=== PATIENT | female | born 1985 | race Caucasian/White ===

== ENCOUNTER 2020-11-09 11:53 | Emergency (ER) | payer BC, SELFPAY ==
--- NOTE | ~2020-11-09 | XR_ITS ---
EXAMINATION: XR chest 1V portable EXAM DATE: 11/09/2020 12:37 INDICATION: Chest pain. TECHNIQUE: Portable AP frontal chest x-ray was obtained. Comparison is made to prior examination from 08/30/2015. FINDINGS: The lungs are clear. There are no pleural effusions. The cardiomediastinal silhouette is within normal limits. There is no pneumothorax suspected. The bones and soft tissues are unremarkab le. IMPRESSION: Unremarkable chest x-ray exam. Reviewed, dictated and finalized at location A.
[2020-11-09 12:00] VITALS: BP 118/74; PULSE 57; RESP 16; TEMP 36.4; O2SAT 100
--- NOTE | 2020-11-09 12:09 | ECG_ITS ---
Measurements Intervals [place] Rate: 61 P: 35 AK: 130 QRS: 69 QRSD: 105 T: 44 QT: 445 QTc: 450 Interpretive Statements SINUS RHYTHM WITH MARKED SINUS ARRHYTHMIA BORDERLINE ECG Electronically Signed On 11-09-2020 12:48:12 CDT by Cornel Lugo D.O.
[2020-11-09 12:21] LABS: Basophils Percent Auto 0.3 % (0.2-1.2); Eosinophils Absolute Auto 0.1 K/mm3 (0-0.3); Eosinophils Percent Auto 0.9 % (0-4.4); Hematocrit 44.6 % (37.0-47.0); Hemoglobin 15.1 g/dL (12.0-15.0); Immature Granulocyte Absolute 0.06 K/mm3 (0.00-0.031); Immature Granulocyte Percent A 0.5 % (0-0.5); Lymphocytes Absolute Auto 1.91 K/mm3 (0.9-3.2); Lymphocytes Percent Auto 16.4 % (18.3-44.2); Mean Corpuscular HGB Conc 33.9 g/dl (32-36); Mean Corpuscular Hemoglobin 31.9 pg (26-34); Mean Corpuscular Volume 94.3 fl (80-100); Mean Platelet Volume 9.7 fl (7.4-10.4); Monocytes Absolute Auto 0.6 K/mm3 (0.1-0.6); Monocytes Percent Auto 5.1 % (2.6-8.5); Neutrophils Absolute Auto 8.9 K/mm3 (1.3-6.7); Neutrophils Percent Auto 76.8 % (45.5-73.1); Platelet Count Result 292 k/mm3 (150-375); Red Blood Count 4.73 M/mm3 (4.2-5.4); Red Cell Distribution Width 13.2 % (11.5-14.5); White Blood Count 11.6 K/mm3 (4.5-10.0)
--- NOTE | 2020-11-09 12:27 | ED.GENADULT ---
HPI - General Adult General Chief complaint: Chest Pain Stated complaint: abd pain, n/v Time Seen by Provider: 11/09/20 12:10 Source: patient Mode of arrival: ambulatory Limitations: no limitations History of Present Illness HPI narrative: This is a 34 year old female who presents for evaluation of nausea, vomiting and diarrhea. Patient states she woke up last night with intermittent substernal chest pain with nausea, vomiting and diarrhea. She states initially her pain was sharp and intermttent. Her pain is currently a constant dull ache. She has continued to have nausea ,vomiting and diarrhea with cold sweats. She denies cough or fever. She has intermittent sob but she thinks that is due to being over heated. Related Data Allergies Allergy/AdvReac Type Severity Reaction Status Date / Time No Known Allergies Allergy Verified 07/02/18 08:08 Review of Systems Review of Systems: All systems reviewed & are unremarkable except as noted in HPI and below Constitutional: Constitutional: Reports chills and Denies fever(s) ENT: Denies sore throat Cardiovascular: Cardiovascular: Reports chest pain Respiratory: Respiratory: Denies cough and Reports dyspnea Gastrointestinal: Gastrointestinal: Reports abdominal pain, Reports diarrhea, Reports nausea and Reports vomiting PMFSH Past Medical History Medical History (Updated 11/09/20 @ 13:59 by Romelia Yeh MD) Patient denies medical problems Surgical History Surgical History (Updated 11/09/20 @ 12:27 by Romelia Yeh MD) No pertinent past surgical history Social History Social History (Updated 11/09/20 @ 12:27 by Romelia Yeh MD) Smoking packs per day: 0.5 Smoking cigarettes per day: 10.0 Smoking status: Current every day smoker Alcohol intake: never Substance use type: marijuana Exam Const: General: no acute distress and alert Orientation/consciousness: patient oriented x3 Eyes: EOM: EOMs intact bilaterally Resp: Effort & Inspection: normal respiratory effort and no retractions Auscultation: clear to auscultation bilaterally Cardio: Rate: regular rate Rhythm: regular rhythm Heart sounds: no murmurs GI: GI Palp: Yes Soft to palpation, No Tenderness to palpation present (GI) and No Guarding due to palpation present (GI) Auscultation: normal bowel sounds Skin: General skin exam: normal color Rashes: no rashes Neuro: General: patient oriented x3, moves all extremities and CN's II-XI intact bilaterally Course Reevaluation(s) Reevaluation #1: Nursing staff reported that patient was still vomiting. She was given dose of reglan and being hydrated. She is now stating she can not sit in ER any more and she still has IVF hanging. I discussed with patient that she still needed further evaluation if she can not tolerate PO. I discussed she may need CT scan to rule out obstruction. Patient states she wants to sign AMA. I reviewed risk of signing out and she states she understands. Date: 11/09/20 Time: 13:55 Vital Signs Vital signs: Vital Signs Temperature 97.5 F L 11/09/20 12:00 Pulse Rate 57 L 11/09/20 12:00 Respiratory Rate 16 11/09/20 12:00 Blood Pressure 118/74 11/09/20 12:00 Pulse Oximetry 100 11/09/20 12:00 Temperature 97.5 F L 11/09/20 12:00 Pulse Rate 57 L 11/09/20 12:00 Respiratory Rate 16 11/09/20 12:00 Blood Pressure 112/54 L 11/09/20 13:56 Pulse Oximetry 100 11/09/20 12:00 Medical Decision Making Vital Signs Vital Signs: Vital Signs Temperature 97.5 F L 11/09/20 12:00 Pulse Rate 57 L 11/09/20 12:00 Respiratory Rate 16 11/09/20 12:00 Blood Pressure 118/74 11/09/20 12:00 Pulse Oximetry 100 11/09/20 12:00 Temperature 97.5 F L 11/09/20 12:00 Pulse Rate 57 L 11/09/20 12:00 Respiratory Rate 16 11/09/20 12:00 Blood Pressure 112/54 L 11/09/20 13:56 Pulse Oximetry 100 11/09/20 12:00 Lab Data Result diagrams: 11/09/20 12:14
[2020-11-09 12:31] LABS: Add Urine Microscopic? YES; Appearance Urine Cloudy (Clear); Bacteria Urine Trace /hpf; Bilirubin Urine Negative (Negative); Blood Urine Negative (Negative); Color Urine Yellow (Yellow); Glucose Urine UA Negative (Negative); Ketones Urine 1+ mg/dL (Negative); Leukocyte Esterase Ur Trace LEU/UL (Negative); Mucus Urine Few /lpf; Nitrate Urine Negative (Negative); Protein Urine 1+ mg/dL (Negative); RBC Urine 0-2 /hpf (0-2); Specific Grav Ur 1.027 (1.001-1.035); Squamous Epithelial Cell Urine Moderate /hpf (Few); Urobilinogen Urine Negative mg/dL (<2.0)
[2020-11-09 12:32] LABS: Alanine Aminotransferase 16 U/L (4-35); Albumin Level 4.8 g/dL (3.5-5.1); Alkaline Phosphatase 101 U/L (38-126); Anion Gap 7 mmol/L (8-16); Aspartate Amino Transferase 25 U/L (14-36); Bilirubin,Total 0.4 mg/dL (0.2-1.3); Blood Urea Nitrogen 11 mg/dL (7-17); Calcium 9.5 mg/dL (8.4-10.2); Carbon Dioxide 25 mmol/L (22-30); Chloride 107 mmol/L (98-107); Estimated CRCL calculation 105 ml/min; Estimated Glomerular Filt Rate > 60; Glucose 140 mg/dL (65-105); Lipase 47 U/L (23-300); Potassium 3.6 mmol/L (3.4-5.0); Sodium 139 mmol/L (137-145)
--- NOTE | 2020-11-09 12:36 | PC.NURSE ---
Called lab, [facility](?), added on Trop Baseline [id number]
[2020-11-09] MEDS: PANTOPRAZOLE SODIUM IV 40 MG VIAL IV PUSH (12:57)
[2020-11-09] MEDS: ONDANSETRON INJ 4 MG/2 ML VIAL IV PUSH (12:57)
[2020-11-09 12:58] LABS: Troponin I < 0.012 ng/mL (0.000-0.034)
[2020-11-09] MEDS: LACTATED RINGERS 1,000 ML 999 ML IV CONT ×2 (12:58→13:36)
[2020-11-09] MEDS: METOCLOPRAMIDE HCL INJ 10 MG/2 ML VIAL IV PUSH (13:36)
[2020-11-09 13:56] VITALS: BP 112/54
--- NOTE | 2020-11-28 08:43 | PC.NURSE ---
LATE ENTRY This note is being entered to document information to the patient's record. The following information was omitted on [11/09/20], by [Javon Bazzi RN]. LR stop time #1 at 1330. LR stop time #2 1430.
== END 2020-11-09 13:57 | disposition left against medical advice (07) ==
PROVIDERS: Emergency Medicine; Emergency Provider General Practice
DX: R11.2 Nausea with vomiting, unspecified (principal); R07.89 Other chest pain; F17.210 Nicotine dependence, cigarettes, uncomplicated; R94.31 Abnormal electrocardiogram [ECG] [EKG]
CPT/HCPCS: 36415; 71045; 80053; 81001; 81025; 83690; 84484; 85025; 93005; 96361; 96374; 96375; 99284; C9113; J0131; J2405; J2765; J7120

== ENCOUNTER 2021-06-03 09:51 | Emergency (ER) | payer BC, SELFPAY ==
[2021-06-03 10:16] VITALS: BP 115/68; PULSE 75; RESP 16; TEMP 36.2; O2SAT 99
[2021-06-03 10:24] VITALS: BP 115/68; PULSE 75; RESP 16; TEMP 36.2; O2SAT 99
--- NOTE | 2021-06-03 10:37 | ED.EAR ---
HPI - Ear Problem General Chief complaint: Ear Stated complaint: left ear pain Time Seen by Provider: 06/03/21 10:44 Source: patient Mode of arrival: ambulatory Limitations: no limitations History of Present Illness HPI Narrative: Megan Luna is a 35 yo female with no PMH who [facility] with left-sided ear pain that started a few days ago- she has had chronic ear problems particularly with multiple infections. Related Data Allergies Allergy/AdvReac Type Severity Reaction Status Date / Time No Known Allergies Allergy Verified 07/02/18 08:08 Review of Systems Review of Systems: CONSTITUTIONAL: Denies fever, chills, sweats. EYES: Denies visual changes, redness, discharge. ENT: Denies rhinorrhea, congestion, sore throat, left otalgia. CARDIOVASCULAR: Denies chest pain, palpitations, edema. RESPIRATORY: Denies dyspnea, wheezing, cough GASTROINTESTINAL: Denies abdominal pain, nausea, vomiting, diarrhea. GENITOURINARY: Denies dysuria, hematuria, abnormal discharge SKIN: Denies rash or itching. NEUROLOGIC: Denies numbness, or focal weakness. PSYCHIATRIC: Denies anxiety or depression. PMFSH Past Medical History Medical History Ear infection Surgical History Surgical History No pertinent past surgical history Family History Family History Other Heart disease Social History Social History Smoking packs per day: 0.5 Smoking cigarettes per day: 10.0 Smoking status: Current every day smoker Alcohol intake: never Substance use type: marijuana Comments At time of signature, I agree with nursing past medical, surgical, social and family history. There is no relevant family history pertinent to the presenting complaint. Exam Narrative: GENERAL: This is a well-nourished, well-developed patient, in mild distress. HEAD: normocephalic, atraumatic. EYES: Sclera clear/white. Vision is grossly intact. EARS: External ears normal, auditory canals erythema and without drainage, TMs with fluid behind TM without perforation. Hearing grossly intact. NOSE: External nose normal without nasal discharge, nares without redness, no rhinorrhea. THROAT: Mucous membranes moist, NECK: Neck supple, non-tender CARDIOVASCULAR: Regular rate and rhythm without murmurs, gallops, or rubs. RESPIRATORY: Clear to auscultation. Breath sounds equal bilaterally. No wheezes, rales, or rhonchi. GASTROINTESTINAL: Abdomen soft, SKIN: warm, intact with no suspicious lesions or rash, good texture and turgor. NEURO: awake, alert, and oriented to person, place and time. There were no obvious focal neurologic abnormalities. Steady gait EXTREMITIES: Normal range of motion. BACK: Nontender without deformity Course Course Emergency Course: Patient comes with left-sided ear pain which is recurrent Started on amoxicillin Follow-up with PCP Vital Signs Vital signs: Vital Signs Temperature 97.2 F L 06/03/21 10:16 Pulse Rate 75 06/03/21 10:16 Respiratory Rate 16 06/03/21 10:16 Blood Pressure 115/68 06/03/21 10:16 Pulse Oximetry 99 06/03/21 10:16 Temperature 97.2 F L 06/03/21 10:24 Pulse Rate 75 06/03/21 10:24 Respiratory Rate 16 06/03/21 10:24 Blood Pressure 115/68 06/03/21 10:24 Pulse Oximetry 99 06/03/21 10:24 Medical Decision Making Differential Diagnosis Differential Diagnosis: Otitis media versus otitis externa versus eustachian tube dysfunction Vital Signs Vital Signs: Vital Signs Temperature 97.2 F L 06/03/21 10:16 Pulse Rate 75 06/03/21 10:16 Respiratory Rate 16 06/03/21 10:16 Blood Pressure 115/68 06/03/21 10:16 Pulse Oximetry 99 06/03/21 10:16 Temperature 97.2 F L 06/03/21 10:24 Pulse Rate 75 06/03/21 10:24 Respiratory Rate 16
== END 2021-06-03 11:10 | disposition home or self-care (01) ==
PROVIDERS: Emergency Provider Nurse Practitioner; PCP Physician Assistant
DX: H66.005 Acute suppurative otitis media without spontaneous rupture of ear drum, recurrent, left ear (principal); F17.210 Nicotine dependence, cigarettes, uncomplicated
CPT/HCPCS: 99213; G0463

== ENCOUNTER 2021-06-18 09:16 | Emergency (ER) | payer BC, SELFPAY ==
[2021-06-18 09:23] VITALS: BP 129/77; PULSE 98; RESP 16; TEMP 36.3; O2SAT 100
[2021-06-18 09:25] VITALS: BP 129/77; PULSE 98; RESP 16; TEMP 36.3; O2SAT 100
--- NOTE | 2021-06-18 09:25 | ED.URI ---
HPI - URI/Sore Throat General Chief Complaint: Upper Respiratory Infection Stated Complaint: cough Time Seen by Provider: 06/18/21 09:25 Source: patient and RN notes reviewed History of Present Illness HPI Narrative: Patient is a 35-year-old female who presents the urgent care with complaints of harsh cough, congestion, postnasal drainage and sore throat. Patient states that it started last . Patient was on amoxicillin up until that point for an ear infection. Patient denies of any fevers but states that she has had chills. Denies of any known contact with Covid. Patient has been taking TheraFlu and Mucinex for her symptoms. Patient has been Covid vaccinated and has a Covid test set up through her work. No other acute complaints. No acute distress. Patient aware of the plan of care. Some parts of this dictation were generated by voice recognition software and may contain typographical and/or grammatical inaccuracies. Related Data Allergies Allergy/AdvReac Type Severity Reaction Status Date / Time No Known Allergies Allergy Verified 06/18/21 09:32 Review of Systems Review of Systems: CONSTITUTIONAL: Denies fever, chills, or sweats. EYES: Denies visual changes, redness, or discharge. ENT: Reports of rhinorrhea, sinus congestion, postnasal drainage and sore throat CARDIOVASCULAR: Denies chest pain, palpitations, or edema. RESPIRATORY: Reports of cough GASTROINTESTINAL: Denies abdominal pain, nausea, vomiting, or diarrhea. GENITOURINARY: Denies dysuria or hematuria. SKIN: Denies rash or itching. MUSCULOSKELETAL: Denies back pain, joint pain, or myalgia. NEUROLOGIC: Denies headache, numbness, or weakness. All other systems reviewed are negative, except as documented in HPI. [facility] Past Medical History Medical History Ear infection Surgical History Surgical History No pertinent past surgical history Family History Family History Other Heart disease Social History Social History Smoking packs per day: 0.5 Smoking cigarettes per day: 10.0 Smoking status: Current every day smoker Alcohol intake: never Substance use type: marijuana Comments At the time of my signature, I reviewed and agree with the nursing past medical, surgical, social, and family history. There is no relevant family history pertinent to the patient complaint. Exam Narrative: GENERAL: This is a well-nourished, well-developed patient, in no apparent distress. HEAD: normocephalic, atraumatic. EYES: PERRL. Sclera clear/white. Vision is grossly intact. EARS: External ears normal, auditory canals clear and without drainage, TMs normal without perforation. Hearing grossly intact. NOSE: External nose normal with no obvious nasal discharge, nares without redness, clear to yellow rhinorrhea. THROAT: Mucous membranes moist. Moderate postnasal drainage NECK: Neck supple CARDIOVASCULAR: Regular rate and rhythm without murmurs, gallops, or rubs. RESPIRATORY: Harsh nonproductive cough throughout exam. Clear to auscultation. Breath sounds equal bilaterally. SKIN: warm, intact with no suspicious lesions or rash, good texture and turgor. NEURO: awake, alert, and oriented to person, place and time. There were no obvious focal neurologic abnormalities. EXTREMITIES: No clubbing, cyanosis, or edema. Course Vital Signs Vital signs: Vital Signs Temperature 97.3 F L 06/18/21 09:23 Pulse Rate 98 06/18/21 09:23 Respiratory Rate 16 06/18/21 09:23 Blood Pressure 129/77 06/18/21 09:23 Pulse Oximetry 100 06/18/21 09:23 Temperature 97.3 F L 06/18/21 09:25 Pulse Rate 98 06/18/21 09:25 Respiratory Rate 16 06/18/21 09:25 Blood Pressure 129/77 06/18/21 09:25 Pulse Oximetry 100 06/18/21 09:25 Reviewed
== END 2021-06-18 09:40 | disposition home or self-care (01) ==
PROVIDERS: Emergency Provider Nurse Practitioner Family
DX: J40 Bronchitis, not specified as acute or chronic (principal); F17.210 Nicotine dependence, cigarettes, uncomplicated
CPT/HCPCS: 99213; G0463

== ENCOUNTER 2021-10-27 10:37 | Emergency (ER) | payer BC, SELFPAY ==
--- NOTE | 2021-10-27 10:41 | ED.SKABFB ---
HPI - Skin/Abscess/Foreign Bdy General Chief complaint: Skin/Abscess/Foreign Body Stated complaint: SPIDER BITE Time Seen by Provider: 10/27/21 10:45 Source: patient, RN notes reviewed and old records reviewed Mode of arrival: ambulatory Limitations: no limitations History of Present Illness HPI narrative: 35-year-old female presents to the [facility] with concerns over having a spider bite to her 2 to 3 days ago. Patient states that the left side of her face there feels pressure and pain in her ear. Small circular area where patient reports that she was bit by a small brown house spider, states that when she was bit she smacked it and killed it so she knows it is a spider. Today woke up with ear pain, muffled hearing, pressure preauricular area. Has had nasal congestion. Denies cough, chest pain, shortness of breath. Denies fevers. MD complaint: insect bite/sting Related Data Allergies Allergy/AdvReac Type Severity Reaction Status Date / Time No Known Allergies Allergy Verified 10/27/21 10:44 Review of Systems Review of Systems: All systems reviewed & are unremarkable except as noted in HPI and below Constitutional: Constitutional: Reports no additional constitutional complaints, Denies chills, Denies fever(s), Denies headache(s) and Denies weakness Eyes: Eyes: Reports no additional eye complaints and Denies change in vision ENT: Reports as per HPI, Denies dysphagia, Denies dizziness, Denies headache(s), Reports nasal congestion, Denies neck pain, Reports sinus pressure, Denies sore throat and Denies throat swelling Comments: left ear pain Cardiovascular: Cardiovascular: Reports no additional cardiovascular complaints, Denies chest pain, Denies syncope and Denies dyspnea Respiratory: Respiratory: Reports no additional respiratory complaints, Denies chest congestion, Denies cough, Denies dyspnea and Denies wheezing Gastrointestinal: Gastrointestinal: Reports no additional gastrointestinal complaints, Denies abdominal pain, Denies dysphagia, Denies nausea and Denies vomiting Musculoskeletal: Musculoskeletal: Reports no additional musculoskeletal complaints and Denies numbness Integumentary/Breasts: Skin/Breast: Reports as per HPI and Reports erythema (left cheek) Neurologic: Reports system reviewed and no additional complaints, except as documented, Denies dizziness, Denies syncope, Denies headache(s), Denies focal weakness, Denies numbness and Denies weakness Psychiatric: Psychiatric: Reports no additional psychiatric complaints Allergic/Immunologic: Allergic/Immunologic: Reports no additional allergic/immunologic complaints and Denies wheezing PMFSH Past Medical History Medical History Ear infection Surgical History Surgical History No pertinent past surgical history Family History Family History Other Heart disease Social History Social History Smoking packs per day: 0.5 Smoking cigarettes per day: 10.0 Smoking status: Current every day smoker Alcohol intake: never Substance use type: marijuana Comments At the time of my signature, I reviewed and agree with the nursing past medical, surgical, social, and family history. There is no relevant family history pertinent to the patient complaint. Exam Const: General: healthy appearing, no acute distress and alert Nutritional Appearance: well nourished Orientation/consciousness: patient oriented x3 Limitations: no limitations HENMT: Head: normal to inspection Ears: external ears normal, EAC's normal, mastoids normal bilaterally, no periauricular adenopathy and TM abnormal bulging on the left, erythematous on the left, with loss of landmarks on the left, with myringotomy tube present on the right and scarred on the right General nose exa
[2021-10-27 10:46] VITALS: BP 131/80; PULSE 78; RESP 16; TEMP 35.7; O2SAT 99
== END 2021-10-27 10:55 | disposition home or self-care (01) ==
PROVIDERS: Emergency Provider Nurse Practitioner
DX: H66.92 Otitis media, unspecified, left ear (principal); T63.301A Toxic effect of unspecified spider venom, accidental (unintentional), initial encounter; F17.210 Nicotine dependence, cigarettes, uncomplicated
CPT/HCPCS: 99213; G0463

== ENCOUNTER 2021-11-17 09:57 | Emergency (ER) | payer BC, SELFPAY ==
--- NOTE | ~2021-11-17 | XR_ITS ---
EXAMINATION: XR chest 2V DATE: 11/17/2021 10:41 INDICATION: Cough TECHNIQUE: PA and lateral views of the chest are obtained. COMPARISON: 10/30/2020 FINDINGS: The lungs are free of acute opacities. There is no pleural effusion or pneumothorax. The ca rdiomediastinal silhouette is normal. The visualized bones and soft tissues are unremarkable. IMPRESSION: 1. No acute cardiopulmonary abnormality. Reviewed, dictated and finalized at location B.
[2021-11-17 10:10] VITALS: BP 123/84; PULSE 76; RESP 16; TEMP 36.1; O2SAT 100
--- NOTE | 2021-11-17 10:31 | ED.DIZZY ---
HPI - Dizziness General Chief Complaint: Dizziness Stated Complaint: Dizzy,Nausea Time Seen by Provider: 11/17/21 10:32 Source: patient Mode of arrival: ambulatory Limitations: no limitations History of Present Illness HPI Narrative: Megan Luna is a 36 yo female with PMH of tobacco abuse who has had a cough congestion and ear drainage for a number of days. She states her cough has continued that her chest is not as painful as it was yesterday; she states she coughs up thick yellow mucus but the patient does smoke half pack cigarettes a day. Patient is taking Flonase, antihistamine, cold meds Related Data Allergies Allergy/AdvReac Type Severity Reaction Status Date / Time No Known Allergies Allergy Verified 10/27/21 10:44 Review of Systems Review of Systems: CONSTITUTIONAL: Denies fever, chills, sweats. Feels poorly EYES: Denies visual changes, redness, discharge. ENT: Denies rhinorrhea, has congestion, has sore throat, ear drainage otalgia. CARDIOVASCULAR: Denies chest pain, palpitations, edema. RESPIRATORY: Denies dyspnea, wheezing, has cough GASTROINTESTINAL: Denies abdominal pain, nausea, vomiting, diarrhea. GENITOURINARY: Denies dysuria, hematuria, abnormal discharge SKIN: Denies rash or itching. NEUROLOGIC: Denies numbness, or focal weakness. PSYCHIATRIC: Denies anxiety or depression. PMFSH Past Medical History Medical History Ear infection Surgical History Surgical History No pertinent past surgical history Family History Family History Other Heart disease Social History Social History Smoking packs per day: 0.5 Smoking cigarettes per day: 10.0 Smoking status: Current every day smoker Alcohol intake: never Substance use type: marijuana Comments At time of signature, I agree with nursing past medical, surgical, social and family history. There is no relevant family history pertinent to the presenting complaint. Exam Narrative: GENERAL: This is a well-nourished, well-developed patient, in mild distress. Has cough that sounds productive HEAD: normocephalic, atraumatic. EYES: Sclera clear/white. Vision is grossly intact. EARS: External ears normal, auditory canals mild erythema and with drainage, TMs normal without perforation. Hearing grossly intact. NOSE: External nose normal without nasal discharge, nares without redness, no rhinorrhea. THROAT: Mucous membranes moist, posterior pharynx erythema no exudate NECK: Neck supple, non-tender CARDIOVASCULAR: Regular rate and rhythm without murmurs, gallops, or rubs. RESPIRATORY: Decreased to auscultation. Breath sounds equal bilaterally. No wheezes, rales, or rhonchi. GASTROINTESTINAL: Abdomen soft, , SKIN: warm, intact with no suspicious lesions or rash, good texture and turgor. NEURO: awake, alert, and oriented to person, place and time. There were no obvious focal neurologic abnormalities. Steady gait EXTREMITIES: Normal range of motion. BACK: Nontender without deformity Course Course Emergency Course: Patient comes with complaints of productive cough with yellow thick mucus, not feeling well some dizziness X-ray- negative cardiopulmonary process Started on prednisone, Tessalon Perles, eardrops Level of Care: Express Care Visit Vital Signs Vital signs: Vital Signs Temperature 97.0 F L 11/17/21 10:10 Pulse Rate 76 11/17/21 10:10 Respiratory Rate 16 11/17/21 10:10 Blood Pressure 123/84 11/17/21 10:10 Pulse Oximetry 100 11/17/21 10:10 Temperature 97.0 F L 11/17/21 10:10 Pulse Rate 76 11/17/21 10:10 Respiratory Rate 16 11/17/21 10:10 Blood Pressure 123/84 11/17/21 10:10 Pulse Oximetry 100 11/17/21 10:10 MDM - Dizziness Differential Diagnosis Differential diagnosis: L
== END 2021-11-17 11:03 | disposition home or self-care (01) ==
PROVIDERS: Emergency Provider Nurse Practitioner
DX: J40 Bronchitis, not specified as acute or chronic (principal); F17.210 Nicotine dependence, cigarettes, uncomplicated
CPT/HCPCS: 71046; 99213; G0463

== ENCOUNTER 2022-01-19 16:33 | Emergency (ER) | payer BC, SELFPAY ==
[2022-01-19 16:41] VITALS: BP 117/66; PULSE 78; RESP 16; TEMP 36.9; O2SAT 100
--- NOTE | 2022-01-19 17:30 | ED.UPPEXIN ---
HPI - Extremity Injury (Upper) General Chief Complaint: Extremity Injury, Upper Stated Complaint: left shoulder pain Time Seen by Provider: 01/19/22 17:30 History of Present Illness HPI narrative: Megan Luna is a 36 yo female with no PMH who comes to express care with R sided shoulder pain from helping move a dresser. Happened a few hours ago has not taken any medication are used ice to shoulder but has pain when tries to move neck to the right are left shoulder in any direction Related Data Allergies Allergy/AdvReac Type Severity Reaction Status Date / Time No Known Allergies Allergy Verified 01/19/22 16:48 Review of Systems Review of Systems: CONSTITUTIONAL: Denies fever, chills, sweats. EYES: Denies visual changes, redness, discharge. ENT: Denies rhinorrhea, congestion, sore throat, otalgia. CARDIOVASCULAR: Denies chest pain, palpitations, edema. RESPIRATORY: Denies dyspnea, wheezing, cough GASTROINTESTINAL: Denies abdominal pain, nausea, vomiting, diarrhea. GENITOURINARY: Denies dysuria, hematuria, abnormal discharge SKIN: Denies rash or itching. NEUROLOGIC: Denies numbness, or focal weakness. PSYCHIATRIC: Denies anxiety or depression. Left shoulder injury from lifting dresser that occurred this afternoon PMFSH Past Medical History Medical History Ear infection Surgical History Surgical History No pertinent past surgical history Family History Family History Other Heart disease Social History Social History Smoking packs per day: 0.5 Smoking cigarettes per day: 10.0 Smoking status: Current every day smoker Alcohol intake: never Substance use type: marijuana Comments At time of signature, I agree with nursing past medical, surgical, social and family history. There is no relevant family history pertinent to the presenting complaint. Exam Narrative: GENERAL: This is a well-nourished, well-developed patient, in mild distress. HEAD: normocephalic, atraumatic. EYES: . Sclera clear/white. Vision is grossly intact. EARS: External ears normal,. Hearing grossly intact. NOSE: External nose normal without nasal discharge, THROAT: Mucous membranes moist, NECK: Neck supple, tender at the base of the neck and around sterno clavicular area when turns head to right CARDIOVASCULAR: Regular rate and rhythm without murmurs, gallops, or rubs. RESPIRATORY: Clear to auscultation. Breath sounds equal bilaterally. No wheezes, rales, or rhonchi. GASTROINTESTINAL: Abdomen soft, non-tender, SKIN: warm, intact with no suspicious lesions or rash, good texture and turgor. NEURO: awake, alert, and oriented to person, place and time. There were no obvious focal neurologic abnormalities. Steady gait EXTREMITIES: Normal range of motion. Pain in left shoulder is able to lift arm to 90 degrees straight out with pain and can move to her back but not up and can move her arm anteriorly but states she gets some numbness in her fingers; pain with trying to lift arm overhead but is able to move arm in that direction BACK: Nontender without deformity Course Course Emergency Course: Patient hurt shoulder and neck while helping move a dresser this afternoon Started on baclofen, steroids Discussed use of ice and heat timing of this use If not improved in the next couple of days should contact PCP for PT referral Level of Care: Express Care Visit Vital Signs Vital signs: Vital Signs Temperature 98.5 F 01/19/22 16:41 Pulse Rate 78 01/19/22 16:41 Respiratory Rate 16 01/19/22 16:41 Blood Pressure 117/66 01/19/22 16:41 Pulse Oximetry 100 01/19/22 16:41 Oxygen Delivery Room Air 01/19/22 16:41 Temperature 98.5 F 01/19/22 16:41 Pulse Rate 78 01/19/22 16:41 Respiratory Rate 16
== END 2022-01-19 17:48 | disposition home or self-care (01) ==
PROVIDERS: Emergency Provider Nurse Practitioner
DX: S43.402A Unspecified sprain of left shoulder joint, initial encounter (principal); X50.0XXA Overexertion from strenuous movement or load, initial encounter; F17.210 Nicotine dependence, cigarettes, uncomplicated
CPT/HCPCS: 99212; G0463

== ENCOUNTER 2022-07-13 09:37 | Emergency (ER) | payer BC, SELFPAY ==
[2022-07-13 09:45] VITALS: BP 124/92; PULSE 97; RESP 16; TEMP 35.6; O2SAT 98
--- NOTE | 2022-07-13 09:58 | ED.URI ---
HPI - URI/Sore Throat General Chief Complaint: Upper Respiratory Infection Stated Complaint: Fever/Bodyaches/Chills Time Seen by Provider: 07/13/22 09:58 Source: patient Mode of arrival: ambulatory Limitations: no limitations History of Present Illness HPI Narrative: 36-year-old female presents with complaint of cough, nasal congestion, sore throat, nausea, diarrhea for 2 days. Reports that her manager telemarketing told her that today she tested positive for COVID. Patient states that she works at [employer] and multiple coworkers are sick. 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 Taking rkda-xrr-[id number] cough and cold medicine to treat her symptoms. Has had fever as high as 101 F. denies chest pain or shortness breath. All systems reviewed and negative except as noted above. Related Data Allergies Allergy/AdvReac Type Severity Reaction Status Date / Time No Known Allergies Allergy Verified 07/13/22 09:40 Review of Systems Review of Systems: CONSTITUTIONAL: Reports fever, chills, or sweats. EYES: Denies visual changes, redness, or discharge. ENT: reports rhinorrhea, congestion, sore throat. Denies otalgia. CARDIOVASCULAR: Denies chest pain, palpitations, or edema. RESPIRATORY: Denies cough or dyspnea. GASTROINTESTINAL: reports diarrhea, nausea. GENITOURINARY: Denies dysuria or hematuria. SKIN: Denies rash or itching. MUSCULOSKELETAL: Denies back pain, joint pain, or myalgia. NEUROLOGIC: Denies headache, numbness, or weakness. PSYCHIATRIC: Denies anxiety or depression. All other systems reviewed are negative, except as documented in HPI. [facility] Past Medical History Medical History Ear infection Surgical History Surgical History No pertinent past surgical history Family History Family History Other Heart disease Social History Social History Smoking packs per day: 0.5 Smoking cigarettes per day: 10.0 Smoking status: Current every day smoker Alcohol intake: never Substance use type: marijuana Comments At time of signature, agree with nursing past medical, surgical, social and family history. There is no relevant family history pertinent to the presenting complaint. Exam Narrative: GENERAL: This is a well-nourished, well-developed patient, in no apparent distress. HEAD: normocephalic, atraumatic. EYES: PERRL. Sclera clear/white. Vision is grossly intact. EARS: External ears normal, auditory canals clear and without drainage, TMs normal without perforation. Hearing grossly intact. NOSE: External nose normal . Reports erythema, clear drainage. THROAT: Mucous membranes moist, Erythema posterior pharynx. NECK: Neck supple, non-tender without lymphadenopathy, masses or thyromegaly. CARDIOVASCULAR: Regular rate and rhythm without murmurs, gallops, or rubs. RESPIRATORY: Clear to auscultation. Breath sounds equal bilaterally. No wheezes, rales, or rhonchi. SKIN: warm, Dry, intact with no suspicious lesions or rash, good texture and turgor. NEURO: awake, alert, and oriented to person, place and time. There were no obvious focal neurologic abnormalities. EXTREMITIES: No joint tenderness, effusion, or edema noted. Course Course Level of Care: Express Care Visit Vital Signs Vital signs: Vital Signs Temperature 35.6 C L 07/13/22 09:45 Pulse Rate 97 07/13/22 09:45 Respiratory Rate 16 07/13/22 09:45 Blood Pressure 124/92 H 07/13/22 09:45 Pulse Oximetry 98 07/13/22 09:45 Oxygen Delivery Room Air 07/13/22 09:45 Temperature 35.6 C L 07/13/22 09:45 Pulse Rate 97 07/13/22 09:45 Respiratory Rate 16 07/13/22 09:45 Blood Pressure 124/92 H 07/13/22 09:45 Pulse Oximetry 98 07/13/22 09:45 Oxygen Delivery Room Air 07/13/22 09:45 Revi
== END 2022-07-13 10:15 | disposition home or self-care (01) ==
PROVIDERS: Emergency Provider Nurse Practitioner Family
DX: B34.9 Viral infection, unspecified (principal); Z20.822 Contact with and (suspected) exposure to COVID-19; F17.210 Nicotine dependence, cigarettes, uncomplicated
CPT/HCPCS: 87426; 87804; 99213; C9803; G0463

== ENCOUNTER 2022-10-31 11:17 | Emergency (ER) | payer OTHER, SELFPAY ==
[2022-10-31 11:36] VITALS: BP 117/78; PULSE 80; RESP 16; TEMP 36.6; O2SAT 99
[2022-10-31 11:37] VITALS: BP 117/78; PULSE 80; RESP 16; TEMP 36.6; O2SAT 99
--- NOTE | 2022-10-31 12:00 | ED.URI ---
HPI - URI/Sore Throat General Chief Complaint: Upper Respiratory Infection Stated Complaint: SORE THROAT Time Seen by Provider: 10/31/22 12:00 Source: patient and RN notes reviewed Mode of arrival: ambulatory Limitations: no limitations History of Present Illness HPI Narrative: 36-year-old female presented for complaint of sinus congestion, sore throat, cough, and bilateral ears popping with drainage. Onset 2 days. Endorses recurrent sinus congestion and ear problems. She has T tubes bilaterally. She has taken bwit-sss-cxnoxwl cold medication without any relief. She currently smokes half pack per day, down from 2 packs per day. Denies shortness of breath, nausea, vomiting, diarrhea, fevers or chills. MD elicited complaint: cough Related Data Allergies Allergy/AdvReac Type Severity Reaction Status Date / Time No Known Allergies Allergy Verified 10/31/22 11:37 Review of Systems Review of Systems: CONSTITUTIONAL: Endorses malaise, denies chills, sweats, fever EYES: Denies visual changes, redness, or discharge ENT: Reports rhinorrhea, congestion, sinus pain, otalgia, sore throat CARDIOVASCULAR: Denies chest pain, palpitations, edema RESPIRATORY: Reports cough, post nasal drainage. Denies dyspnea GASTROINTESTINAL: Denies abdominal pain, nausea, vomiting, diarrhea SKIN: Denies rash or itching MUSCULOSKELETAL: Denies myalgia NEUROLOGIC: Denies headache PMFSH Past Medical History Medical History Ear infection Surgical History Surgical History No pertinent past surgical history Family History Family History Other Heart disease Social History Social History Smoking packs per day: 0.5 Smoking cigarettes per day: 10.0 Smoking status: Current every day smoker Alcohol intake: never Substance use type: marijuana Exam Narrative: GENERAL: Ill-appearing, nontoxic no acute distress. HEAD: Normocephalic EYES: PERRLA, conjunctivae clear ENT: Mucous membranes moist. Right TM pearly olmos with dull light reflex; tubes in place bilaterally; Left TM with purulent effusion. no tragal tenderness. Hoarse voice. Oropharynx without erythema, tonsillar swelling, lesions or exudate, no drooling, no trismus, uvula midline. Poor dentition. No tripod positioning, muffled voice, soft palate or pharyngeal wall bulging NECK: Supple. No lymphadenopathy CHEST: Lungs diminished with scattered wheezing. Moist UTILITY BAGGER cough noted. No respiratory distress, speaks in full sentences. HEART: Regular rate and rhythm. SKIN: Warm, dry, no rash. NEURO: Alert and oriented x3. PSYCH: Normal mood and affect Course Course Emergency Course: Patient is aware of diagnosis, understands and agrees to treatment plan. Anticipatory guidance given. Patient agrees to follow-up as directed and is aware of reasons to seek care at the emergency department. Portions of this record may have been created with voice recognition software Level of Care: Express Care Visit Vital Signs Vital signs: Vital Signs Temperature 98 F 10/31/22 11:36 Pulse Rate 80 10/31/22 11:36 Respiratory Rate 16 10/31/22 11:36 Blood Pressure 117/78 10/31/22 11:36 Pulse Oximetry 99 10/31/22 11:36 Oxygen Delivery Room Air 10/31/22 11:36 Temperature 98 F 10/31/22 11:37 Pulse Rate 80 10/31/22 11:37 Respiratory Rate 16 10/31/22 11:37 Blood Pressure 117/78 10/31/22 11:37 Pulse Oximetry 99 10/31/22 11:37 Oxygen Delivery Room Air 10/31/22 11:37 reviewed MDM - URI/Sore Throat MDM Narrative Medical decision making narrative: Discussed physical exam findings. Advised supportive measures and signs/symptoms to go to the ER. States she has an albuterol inhaler. Pt is appropriate for outpt treatment and f/u. Differential
== END 2022-10-31 12:14 | disposition home or self-care (01) ==
PROVIDERS: Emergency Provider Nurse Practitioner Family
DX: J40 Bronchitis, not specified as acute or chronic (principal); H66.92 Otitis media, unspecified, left ear; Z20.822 Contact with and (suspected) exposure to COVID-19; F17.210 Nicotine dependence, cigarettes, uncomplicated
CPT/HCPCS: 87081; 87426; 87804; 87880; 99213; C9803; G0463

== ENCOUNTER 2023-03-26 06:52 | Emergency (ER) | payer OTHER, SELFPAY ==
[2023-03-26 06:54] VITALS: BP 130/90; PULSE 98; RESP 15; TEMP 36.5; O2SAT 99
--- NOTE | 2023-03-26 09:20 | PC.NURSE ---
Continue to wait on MD assessment. Pt resting
--- NOTE | 2023-03-26 09:24 | ED.SKABFB ---
HPI - Skin/Abscess/Foreign Bdy General Chief complaint: Skin/Abscess/Foreign Body Stated complaint: cyst/pain Time Seen by Provider: 03/26/23 09:13 Source: patient Mode of arrival: ambulatory Limitations: no limitations History of Present Illness HPI narrative: This is a 37 year old female that presents to the ER for an area of redness and swelling to the buttock. Reports she noted yesterday what she thought was a small pimple. Reports today the area is much larger and is red and hot. Reports pain to the area. She is about 20 weeks currently. She denies any related concerns. Has had regular care. Her OB is Pippa Dumont. Denies fevers. Related Data Allergies Allergy/AdvReac Type Severity Reaction Status Date / Time No Known Allergies Allergy Verified 03/26/23 06:58 Review of Systems Review of Systems: CONSTITUTIONAL: Denies fever SKIN: Reports redness and swelling All systems reviewed & are unremarkable except as noted in HPI and below PMFSH Past Medical History Medical History Ear infection Surgical History Surgical History No pertinent past surgical history Family History Family History Other Heart disease Social History Social History Smoking packs per day: 0.5 Smoking cigarettes per day: 10.0 Smoking status: Current every day smoker Alcohol intake: never Substance use type: marijuana Exam Narrative: GENERAL: Well-appearing, well-nourished, and in no acute distress. HEAD: Normocephalic, atraumatic. EYES: EOMI. CHEST: No respiratory distress HEART: Regular rate EXTREMITIES: Normal range of motion. No edema. SKIN: Warm, dry, no rash. 3cm circular area of erythema and edema with central fluctuance in the pilonidal area NEURO: No focal deficits. Alert and oriented x3. PSYCH: Normal mood and affect Course Course Emergency Course: Patient agrees with plan of care Vital Signs Vital signs: Vital Signs Temperature 97.7 F 03/26/23 06:54 Pulse Rate 98 03/26/23 06:54 Respiratory Rate 15 03/26/23 06:54 Blood Pressure 130/90 03/26/23 06:54 Pulse Oximetry 99 03/26/23 06:54 Oxygen Delivery Room Air 03/26/23 06:54 Temperature 97.7 F 03/26/23 06:54 Pulse Rate 98 03/26/23 06:54 Respiratory Rate 15 03/26/23 06:54 Blood Pressure 130/90 03/26/23 06:54 Pulse Oximetry 99 03/26/23 06:54 Oxygen Delivery Room Air 03/26/23 06:54 Procedures Abscess I/D other: Date of Incision: 03/26/23 Time of Incision: 10:49 Local Anesthetic: lidocaine 1% and with epi Amount of anesthesia used (mL): 2 Technique: incised with #11 blade Irrigation: Yes Packing used?: plain I&D Results: Pus and Blood Abcess I&D Additional Comments: Loculations broken up. Patient tolerated procedure well, no complications MDM - Skin/Abscess/Foreign Bdy MDM Narrative Medical decision making narrative: Patient presents to the emergency department for an area of redness and swelling to the buttock that had worsened today. She is afebrile and nontoxic-appearing. She did have a pilonidal abscess that was drained. Patient tolerated procedure well, no complications. Packing was placed. She was educated on further wound care. She does have a follow-up appointment with her doctor in about a week. She will be started on oral antibiotics. She was given warnings to return to the ER Patient currently about 20 weeks . She has no related concerns. She is feeling baby move. Normal heart tones Differential Diagnosis Differential diagnosis: Likely cellulitis and other (Abscess, cyst) Critical Care Time Critical Care Time Critical Care Time: No Discharge P
[2023-03-26] MEDS: ACETAMINOPHEN 500 MG TABLET 1000 MG PO (09:29)
--- NOTE | 2023-03-26 10:48 | PC.NURSE ---
RN assisted with I & D of buttocks abscess. Large amount of brown drainage with foul odor. Packing placed be PA. Pt tolerated well
== END 2023-03-26 11:10 | disposition home or self-care (01) ==
PROVIDERS: Emergency Provider Physician Assistant
DX: O99.712 Diseases of the skin and subcutaneous tissue complicating pregnancy, second trimester (principal); L05.01 Pilonidal cyst with abscess; O99.332 Smoking (tobacco) complicating pregnancy, second trimester; F17.210 Nicotine dependence, cigarettes, uncomplicated; Z3A.20 20 weeks gestation of pregnancy
CPT/HCPCS: 10080; 87070; 87077; 87205; 99283; A9270

== ENCOUNTER 2023-06-02 06:24 | Emergency (ER) | payer OTHER, SELFPAY ==
[2023-06-02 06:25] VITALS: BP 132/70; PULSE 99; RESP 18; TEMP 36.6; O2SAT 100
--- NOTE | 2023-06-02 09:23 | ED.GENADULT ---
HPI - General Adult General Chief complaint: Skin/Abscess/Foreign Body Stated complaint: cyst on tailbone Time Seen by Provider: 06/02/23 08:57 History of Present Illness HPI narrative: Megan Luna is a 37 y/o female who presents with reports of having a hx of pilonidal cyst and has had it drained two other times. She states that the last time she had it drained was about 2 months ago here. She reports that the past two days she started to have increased pain/ swelling to the area again. Denies any fever/chills/ abdominal pain / nausea/vomiting Related Data Allergies Allergy/AdvReac Type Severity Reaction Status Date / Time No Known Allergies Allergy Verified 03/26/23 06:58 Review of Systems Review of Systems: CONSTITUTIONAL: Denies fever, chills, or sweats. EYES: Denies visual changes, redness, or discharge. ENT: Denies rhinorrhea, congestion, sore throat, or otalgia. CARDIOVASCULAR: Denies chest pain, palpitations, or edema. RESPIRATORY: Denies cough or dyspnea. GASTROINTESTINAL: Denies abdominal pain, nausea, vomiting, or diarrhea. GENITOURINARY: Denies dysuria or hematuria. SKIN: Complains of increased pain/ swelling to her lower back top of buttock for the past two days MUSCULOSKELETAL: Denies back pain, joint pain, or myalgia. NEUROLOGIC: Denies headache, numbness, dizziness, or weakness. PSYCHIATRIC: Denies anxiety or depression. PMFSH Past Medical History Medical History Ear infection Surgical History Surgical History No pertinent past surgical history Family History Family History Other Heart disease Social History Social History Smoking packs per day: 0.5 Smoking cigarettes per day: 10.0 Smoking status: Current every day smoker Alcohol intake: never Substance use type: marijuana Exam Narrative: GENERAL: Well-appearing, well-nourished, and in no acute distress. HEAD: Normocephalic, atraumatic. EYES: PERRLA and EOMI. ENT: Nares clear, no rhinorrhea or epistaxis. Mucous membranes moist. Oropharynx without tonsillar hypertrophy exudate or other lesions. NECK: Supple. No adenopathy or masses. No carotid bruits or JVD CHEST: Clear to auscultation. No respiratory distress. No wheezes rales or rhonchi HEART: Regular rate and rhythm. No murmur heard. Normal peripheral pulses. ABDOMEN: Soft, nontender, nondistended, normal active bowel sounds. EXTREMITIES: Normal range of motion. No edema. SKIN: area to top of buttock to the right inner buttock to the top of buttock noted to be swollen/ errythema NEURO: No focal deficits. Alert and oriented x3. PSYCH: Normal mood and affect. Course Vital Signs Vital signs: Vital Signs Temperature 36.6 C 06/02/23 06:25 Pulse Rate 99 06/02/23 06:25 Respiratory Rate 18 06/02/23 06:25 Blood Pressure 132/70 06/02/23 06:25 Pulse Oximetry 100 06/02/23 06:25 Oxygen Delivery Room Air 06/02/23 06:25 Temperature 36.6 C 06/02/23 06:25 Pulse Rate 99 06/02/23 06:25 Respiratory Rate 18 06/02/23 06:25 Blood Pressure 132/70 06/02/23 06:25 Pulse Oximetry 100 06/02/23 06:25 Oxygen Delivery Room Air 06/02/23 06:25 Procedures Abscess I/D back: Date of Incision: 06/02/23 Time of Incision: 10:30 Side (if applicable): left Sedation/analgesia: none Local Anesthetic: lidocaine 1% and with epi Amount of anesthesia used (mL): 4 Technique: incised with #11 blade Irrigation: Yes Packing used?: none I&D Results: Pus and Blood Abcess I&D Additional Comments: Cleansed with ChloraPrep/ anesthetized and then cleansed again and one stab incision of the 11 blade used - Moderate pus removed with some blood - pt tolerated well. Area significan
[2023-06-02] MEDS: ACETAMINOPHEN 500 MG TABLET 1000 MG PO (09:31)
[2023-06-02 09:47] LABS: Basophils Percent Auto 0.2 % (0.2-1.2); Eosinophils Absolute Auto 0.1 K/mm3 (0-0.3); Hematocrit 38.6 % (37.0-47.0); Hemoglobin 12.4 g/dL (12.0-15.0); Immature Granulocyte Absolute 0.09 K/mm3 (0.00-0.031); Immature Granulocyte Percent A 0.6 % (0-0.5); Lymphocytes Percent Auto 11.9 % (18.3-44.2); Mean Corpuscular HGB Conc 32.1 g/dl (32-36); Mean Corpuscular Volume 99.7 fl (80-100); Mean Platelet Volume 9.8 fl (7.4-10.4); Monocytes Absolute Auto 0.8 K/mm3 (0.1-0.6); Monocytes Percent Auto 5.3 % (2.6-8.5); Neutrophils Absolute Auto 11.6 K/mm3 (1.3-6.7); Platelet Count Result 299 k/mm3 (150-375); Red Blood Count 3.87 M/mm3 (4.2-5.4); Red Cell Distribution Width 13.1 % (11.5-14.5); White Blood Count 14.3 K/mm3 (4.5-10.0)
[2023-06-02 09:56] LABS: Anion Gap 10 mmol/L (8-16); Blood Urea Nitrogen 9 mg/dL (7-17); Calcium 9.1 mg/dL (8.4-10.2); Carbon Dioxide 21 mmol/L (22-30); Chloride 106 mmol/L (98-107); Estimated CRCL calculation 182 ml/min; Estimated Glomerular Filt Rate > 60; Glucose 79 mg/dL (65-110); Potassium 3.8 mmol/L (3.4-5.0); Sodium 137 mmol/L (137-145)
[2023-06-02 09:57] LABS: Appearance Urine Cloudy (Clear); Bacteria Urine 1+ /hpf; Bilirubin Urine Negative (Negative); Blood Urine Negative (Negative); Color Urine Yellow (Yellow); Glucose Urine UA Negative (Negative); Ketones Urine Negative (Negative); Leukocyte Esterase Ur 1+ LEU/UL (Negative); Need Manual Microscopic Reviewed; Nitrate Urine Negative (Negative); Non Pathogenic Casts 0-2; Protein Urine Negative (Negative); RBC Urine 0-2 /hpf (0-2); Specific Grav Ur 1.018 (1.001-1.035); Squamous Epithelial Cell Urine Many /hpf (Few); Urobilinogen Urine 0.2 mg/dL (<2.0); WBC Urine 0-5 /hpf; pH Urine 6.5 (5.0-9.0)
[2023-06-02 10:03] LABS: Add Urine Microscopic? YES
[2023-06-02] MEDS: SODIUM CHLORIDE 0.9% IV 1,000 ML 999 ML IV CONT (10:12)
== END 2023-06-02 11:30 | disposition home or self-care (01) ==
PROVIDERS: Emergency Provider Nurse Practitioner Family; PCP Advanced Practice Midwife
DX: L05.01 Pilonidal cyst with abscess (principal); F17.210 Nicotine dependence, cigarettes, uncomplicated
CPT/HCPCS: 10080; 36415; 80048; 81001; 85025; 96365; 99284; A9270; J0696; J7030

== ENCOUNTER 2023-07-29 10:21 | Outpatient (RCR) | payer OTHER, SELFPAY ==
[2023-07-30] MEDS: RHO(D) IMMUNE GLOBULIN 300 MCG/2 ML SYRINGE IM (15:25)
== END 2023-10-27 23:59 | disposition home or self-care (01) ==
LOC: ANHLAB 10:21
PROVIDERS: PCP Advanced Practice Midwife; Visit Provider Obstetrics & Gynecology
DX: Z29.13 Encounter for prophylactic Rho(D) immune globulin (principal); O36.0130 Maternal care for anti-D [Rh] antibodies, third trimester, not applicable or unspecified; Z3A.00 Weeks of gestation of pregnancy not specified
CPT/HCPCS: 36415; 85461; 86850; 86900; 86901; 90384; 96372; J2790

== ENCOUNTER 2023-08-13 05:33 | Inpatient (IN) | payer OTHER, SELFPAY ==
[2023-08-13] VITALS (51 sets, daily range): BP systolic 81–128; BP diastolic 45–77; PULSE 54–130; RESP 14–20; TEMP 36.2–36.9; O2SAT 97–100; BMI 37.0
[2023-08-13 06:22] LABS: Basophils Percent Auto 0.3 % (0.2-1.2); Eosinophils Absolute Auto 0.1 K/mm3 (0-0.3); Eosinophils Percent Auto 1.2 % (0-4.4); Hematocrit 37.8 % (37.0-47.0); Hemoglobin 12.4 g/dL (12.0-15.0); Immature Granulocyte Absolute 0.08 K/mm3 (0.00-0.031); Immature Granulocyte Percent A 0.7 % (0-0.5); Lymphocytes Absolute Auto 2.04 K/mm3 (0.9-3.2); Mean Corpuscular HGB Conc 32.8 g/dl (32-36); Mean Corpuscular Hemoglobin 32.4 pg (26-34); Mean Corpuscular Volume 98.7 fl (80-100); Monocytes Absolute Auto 0.6 K/mm3 (0.1-0.6); Monocytes Percent Auto 5.8 % (2.6-8.5); Neutrophils Absolute Auto 7.8 K/mm3 (1.3-6.7); Platelet Count Result 322 k/mm3 (150-375); Red Blood Count 3.83 M/mm3 (4.2-5.4); Red Cell Distribution Width 13.4 % (11.5-14.5); White Blood Count 10.7 K/mm3 (4.5-10.0)
--- NOTE | 2023-08-13 06:23 | LDADM ---
This patient, Megan Luna, was admitted to Labor/Delivery/Recovery 120 on 08/13/23 at 05:33. Plans for labor, pain management and were discussed with patient. Patient/family oriented to hospital policies and general routines including ID bracelet, bed and alarms, visiting hours, pain management, procedures, bathroom and other care routines, personal items, smoking policy, room service/diet and guest tray routines, infant security routines, and visiting hours. Patient/Family are encouraged to report perceived risks to care and to ask questions if they do not understand what they are told or what they should do. See OBIX for further documentation.
--- NOTE | 2023-08-13 06:45 | PC.NURSE ---
Mild contractions 2-8 mins apart. Pt states no change from the contractions she has been having.
[2023-08-13] MEDS: ACETAMINOPHEN 500 MG TABLET 1000 MG PO (07:08)
--- NOTE | 2023-08-13 08:23 | WPDANESEPPF ---
Anes - Initial Pre Proc Eval Procedure: Operation Date: 08/13/23 07:30 Proposed Procedures p Primary Section - Akanksha Navarrete MD Date/Time: 08/13/23 08:23 Surgeon: Akanksha Navarrete MD Pre Op Diagnosis: C/S Patient Data Age: 37 Gender: F Height: 1.63 m Weight: 98 kg Last Vital Signs Pulse 78 08/13/23 06:30 BP 117/71 08/13/23 06:30 O2 Del Method Room Air 08/13/23 06:19 Allergies Allergy/AdvReac Type Severity Reaction Status Date / Time No Known Allergies Allergy Verified 03/26/23 06:58 Home Medications Medication Instructions Recorded Confirmed Type prenat.vits,cholo,ziz-yepa-kmjah 1 tablet PO DAILY 07/22/23 08/13/23 History Laboratory Tests 08/13/23 06:14 WBC 10.7 H K/mm3 (4.5-10.0) RBC 3.83 L M/mm3 (4.2-5.4) Hgb 12.4 g/dL (12.0-15.0) Hct 37.8 % (37.0-47.0) MCV 98.7 fl (80-100) MCH 32.4 pg (26-34) MCHC 32.8 g/dl (32-36) RDW 13.4 % (11.5-14.5) Plt Count 322 k/mm3 (150-375) MPV 10.0 fl (7.4-10.4) Immature Gran % (Auto) 0.7 H % (0-0.5) Neut % (Auto) 73.0 % (45.5-73.1) Lymph % (Auto) 19.0 % (18.3-44.2) [place] % (Auto) 5.8 % (2.6-8.5) Eos % (Auto) 1.2 % (0-4.4) Baso % (Auto) 0.3 % (0.2-1.2) Lymph # (Auto) 2.04 K/mm3 (0.9-3.2) [place] # (Auto) 0.6 K/mm3 (0.1-0.6) Eos # (Auto) 0.1 K/mm3 (0-0.3) Baso # (Auto) 0.0 K/mm3 (0.0-0.1) Abs Immat Gran (auto) 0.08 H K/mm3 (0.00-0.031) Absolute Neuts (auto) 7.8 H K/mm3 (1.3-6.7) Absolute Nucleated RBC 0.0 K/mm3 (0.0-0.012) Nucleated RBC % 0.0 % (0.0-0.2) RPR Pending Blood Type A Negative Antibody Screen Positive Antibody Identification Pending Antigen Identification Pending SAMMY, IgG Interpret Pending SAMMY, Poly Interpret Negative SAMMY, Complement Interp Pending Patient hx anesthesia problems: none Family hx anesthesia problems: none Results Review: All pre-operative results and documents have been reviewed as part of the pre-operative evaluation. [facility] Past Medical History Medical History Ear infection Surgical History Surgical History No pertinent past surgical history Family History Family History Mother Heart disease Sibling Heart disease Social History Social History Smoking packs per day: 0.5 Smoking cigarettes per day: 10.0 Smoking status: Former smoker Tobacco type: cigarettes Alcohol intake: never Substance use: never Substance use type: marijuana Do You Feel Safe in your Home?: Yes Lack of Transportation: No Lack of Food: Never True Current Housing: I Have Housing Concerned About Future Housing: No Difficulty Paying Gas/Electric Bills: No Difficulty Paying for Meds: No Currently Unemployed: No Education: High School Diploma/GED Difficulty w/ Childcare or Family Care: No Spiritual care concerns: No Anes - Eval Final PreProcedure Day of Procedure 08/13/23 08:23 Patient weight: obese Heart: regular rate and rhythm Lungs: clear to auscultation Airway: Mallampati scale class II Neurological: alert and oriented Last oral intake: >/= 8 hours ASA classification: II Emergent: no Anesthetic plan: proceed Anesthesia type and monitoring: regional spinal and standard monitoring Results Review: All pre-operative results and documents have been reviewed as part of the pre-operative evaluation. Informed Consent: The patient's anesthetic plan and its attendant risks and benefits were discussed with the patient/family/POA. Questions were solicited and answers provided to the satisfaction of the patient/family/POA.
--- NOTE | 2023-08-13 08:25 | PC.NURSE ---
Bedside U/S by Dr. Navarrete confirms breech presentation.
[2023-08-13] MEDS: FAMOTIDINE 20 MG/2 ML VIAL IV PUSH (08:26)
[2023-08-13] MEDS: ONDANSETRON INJ 4 MG/2 ML VIAL IV PUSH (08:26)
--- NOTE | 2023-08-13 08:28 | PM.IMHP ---
H&P: HPI History of Present Illness Date/Time: 08/13/23 08:28 Chief Complaint: Term , breech Narrative: this patient is a 37-year-old multiparous female at term with a in the breech position. We have agreed to perform repeat . She understands the procedure in great detail. She understands the risks. She understands injuries may occur that result in hospitalization, more surgery, and severe illness. She understands risk of hemorrhage and infection. She denies any nausea, vomiting, fever, chills. She denies any chest pain or shortness of breath. Review of Systems Review of Systems: All systems reviewed & are unremarkable except as noted in HPI and below Constitutional: Constitutional: Denies chills, Denies fatigue, Denies fever(s) and Denies weakness Eyes: Eyes: Denies blurry vision, Denies change in vision, Denies loss of peripheral vision, Denies loss of vision, Denies other visual disturbances and Denies eye pain ENT: Denies vertigo, Denies dizziness, Denies hearing loss, Denies mouth pain, Denies nasal obstruction, Denies neck mass and Denies neck pain Cardiovascular: Cardiovascular: Denies chest pain, Denies diaphoresis, Denies syncope, Denies leg edema and Denies dyspnea Respiratory: Respiratory: Denies chest congestion, Denies cough, Denies hemoptysis, Denies dyspnea and Denies wheezing Gastrointestinal: Gastrointestinal: Denies abdominal pain, Denies constipation, Denies diarrhea, Denies nausea and Denies vomiting Genitourinary: Genitourinary: Denies hematuria, Denies change in libido, Denies nocturia, Denies genital lesions, Denies flank pain and Denies urinary urgency Musculoskeletal: Musculoskeletal: Denies abnormal gait, Denies back pain, Denies myalgias, Denies arthralgias, Denies joint swelling, Denies muscle weakness and Denies neck pain Integumentary/Breasts: Skin/Breast: Denies swelling, Denies breast pain, Denies breast mass, Denies dry skin, Denies nipple discharge, Denies unusual bruising and Denies jaundice Neurologic: Denies Neuro-related abnormal movements, Denies Abnormal speech present, Denies abnormal gait, Denies behavioral changes, Denies confusion, Denies vertigo, Denies dizziness, Denies syncope, Denies loss of vision, Denies memory loss, Denies convulsions and Denies weakness Psychiatric: Psychiatric: Denies abnormal sleep pattern, Denies behavioral changes, Denies change in libido, Denies confusion, Denies depression, Denies anhedonia and Denies memory loss Endocrine: Endocrine: Reports no additional endocrine complaints, Denies change in libido and Denies fatigue Hematologic/Lymphatic: Hematologic/Lymphatic: Reports no additional hematologic/lymphatic complaints Allergic/Immunologic: Allergic/Immunologic: Reports no additional allergic/immunologic complaints and Denies wheezing PMFSH Past Medical History Medical History Ear infection Surgical History Surgical History No pertinent past surgical history Family History Family History Mother Heart disease Sibling Heart disease Social History Social History Smoking packs per day: 0.5 Smoking cigarettes per day: 10.0 Smoking status: Former smoker Tobacco type: cigarettes Alcohol intake: never Substance use: never Substance use type: marijuana Do You Feel Safe in your Home?: Yes Lack of Transportation: No Lack of Food: Never True Current Housing: I Have Housing Concerned About Future Housing: No Difficulty Paying Gas/Electric Bills: No Difficulty Paying for Meds: No Currently Unemployed: No Education: High School Diploma/GED Difficulty w/ Childcare or Family Care: No Spiritual care concerns: No Meds Home Medications and Allergies Home Medication
[2023-08-13] MEDS: LACTATED RINGERS 1,000 ML 125 ML IV CONT (08:29)
--- NOTE | 2023-08-13 08:31 | WPDHPUPDATE1 ---
History and Physical Update Update Date/Time: 08/13/23 08:31 History and Physical has been reviewed, including an updated exam of the patient. There are NO changes in the patient's condition. Risks, benefits, and alternatives have been discussed and questions answered. Patient agrees to proceed with procedure.
[2023-08-13] MEDS: ceFAZolin 2 GM/D5W 50 ML 2 GM/50 ML BAG IVPB (09:00)
--- NOTE | 2023-08-13 09:02 | SUR.OPER ---
FHT's 120 in OR after spinal placed.
[2023-08-13] MEDS: KETOROLAC 30 MG/ML VIAL (*BKC) 15 MG IV PUSH (09:29)
--- NOTE | 2023-08-13 09:45 | P.PCNOB_ITS ---
OB - Delivery Note Procedure Delivery date: 08/13/23 Pre-op diagnosis: Breech Presentation Post-op Diagnosis: Same Procedure Performed: Primary Surgeon: Akanksha Navarrete MD Anesthesia type: Epidural Description of Procedure/Findings: The patient was taken the operating room.? She was prepped and draped in dorsal supine position with a leftward tilt.? This was done after spinal anesthetic was applied.? A low-transverse skin incision was made and carried down till of the fascia with the knife.? The fascial incision was made with the knife.? The fascial incision was extended laterally with Cruz scissors.? The fascia was tented upward superiorly and inferiorly the rectus muscles were dissected off bluntly.? The rectus muscles were the midline.? The preperitoneal fat and peritoneum were dissected open bluntly at the superior aspect of the rectus muscles.? The peritoneal incision was extended superior and inferior with good position of bladder.? The uterine incision was made with a scalpel down to the level of the amniotic cavity.? The amniotic cavity was entered bluntly.? The infant was delivered.? The cord was clamped and cut and the infant was handed off to waiting pediatric staff.? Cord bloods were obtained.? The placenta was removed manually.? The uterus was exteriorized.? The uterus was cleared of all clots, debris and membranes.? The uterus was closed in 0 Vicryl running lock fashion.? An imbricating over a was placed along the incision line as well.? The uterus was returned to the abdomen.? The gutters were cleared of all clots and debris.? The fascia was closed with 0 Vicryl running fashion.? The subcutaneous tissue was irrigated pinpoint bleeders were cauterized.? The skin was closed with subcuticular absorbable sukumar.? The skin incision line was covered with glue.? The patient tolerated the procedure well.? She has taken recovery room in stable condition.? Sponge lap and needle counts were correct x2.? Estimated Blood Loss: 350 [place] Baby Weeks of gestation at delivery: 39
--- NOTE | 2023-08-13 09:49 | SUR.PHASEI ---
500 ml remains in IV bag of 1000 LR with 10 units of Pitocin- infusing rapidly.
[2023-08-13] MEDS: MORPHINE SULFATE INJ (*CRX) 10 MG/ML AMP 3 MG IV PUSH (10:20)
[2023-08-13] MEDS: OXYTOCIN 30 UNITS/NS 500 ML 30 UNITS/500 ML BAG 125 UNITS IV CONT (10:30)
--- NOTE | 2023-08-13 12:48 | OBPPTRN ---
1208 Patient transferred to post room #285 via stretcher. Support person present. Oriented to unit, room, information board, rooming in, admission packet and security measures. Patient verbalizes understanding.
[2023-08-13] MEDS: DEXTROSE 5%/0.45% SOD CHL 1,000 ML 125 ML IV CONT (14:55)
[2023-08-13 15:57] LABS: Rapid Plasma Reagin Non-Reactive (NonReactive)
[2023-08-13] MEDS: KETOROLAC 30 MG/ML VIAL (*BKC) IV PUSH (20:20)
[2023-08-14] MEDS: HYDROcodone/acetaminophen (*CRX) 5-325 MG TABLET 1 TAB PO ×5 (00:20→20:24)
[2023-08-14 04:20] VITALS: BP 115/72; PULSE 87; RESP 18; TEMP 36.7; O2SAT 98
[2023-08-14] MEDS: KETOROLAC 30 MG/ML VIAL (*BKC) IV PUSH (04:20)
[2023-08-14 06:00] LABS: Basophils Percent Auto 0.3 % (0.2-1.2); Eosinophils Absolute Auto 0.1 K/mm3 (0-0.3); Eosinophils Percent Auto 0.9 % (0-4.4); Hematocrit 34.2 % (37.0-47.0); Hemoglobin 10.5 g/dL (12.0-15.0); Immature Granulocyte Absolute 0.09 K/mm3 (0.00-0.031); Immature Granulocyte Percent A 0.6 % (0-0.5); Lymphocytes Percent Auto 10.6 % (18.3-44.2); Mean Corpuscular HGB Conc 30.7 g/dl (32-36); Mean Corpuscular Hemoglobin 31.4 pg (26-34); Mean Corpuscular Volume 102.4 fl (80-100); Mean Platelet Volume 10.8 fl (7.4-10.4); Monocytes Absolute Auto 0.8 K/mm3 (0.1-0.6); Monocytes Percent Auto 5.5 % (2.6-8.5); Neutrophils Absolute Auto 12.4 K/mm3 (1.3-6.7); Neutrophils Percent Auto 82.1 % (45.5-73.1); Platelet Count Result 304 k/mm3 (150-375); Red Blood Count 3.34 M/mm3 (4.2-5.4); Red Cell Distribution Width 13.6 % (11.5-14.5); White Blood Count 15.1 K/mm3 (4.5-10.0)
[2023-08-14 07:55] VITALS: BP 145/82; PULSE 92; RESP 18; TEMP 37.2; O2SAT 99
--- NOTE | 2023-08-14 07:55 | PM.OBPNVD ---
OB - PN: Subj Subjective Date/time seen: 08/14/23 07:55 Interval history: PP day 1 primary csection for breech baby doing well mobile,flatus present OB - PN: Obj Data Labs 08/14/23 04:24 Labs: Laboratory Results - last 24 hr 08/13/23 08/14/23 06:14 04:24 WBC 15.1 H RBC 3.34 L Hgb 10.5 L Hct 34.2 L MCV 102.4 H MCH 31.4 MCHC 30.7 L RDW 13.6 Plt Count 304 MPV 10.8 H Immature Gran % (Auto) 0.6 H Neut % (Auto) 82.1 H Lymph % (Auto) 10.6 L Hitchcock % (Auto) 5.5 Eos % (Auto) 0.9 Baso % (Auto) 0.3 Lymph # (Auto) 1.60 Hitchcock # (Auto) 0.8 H Eos # (Auto) 0.1 Baso # (Auto) 0.0 Abs Immat Gran (auto) 0.09 H Absolute Neuts (auto) 12.4 H Absolute Nucleated RBC 0.0 Nucleated RBC % 0.0 RPR Non-reactive Antibody Identification Passive Due to RH Imm Glob Antigen Identification TNP SAMMY, IgG Interpret Not Performed SAMMY, Poly Interpret Negative SAMMY, Complement Interp Not Performed OB - PN A/P Plan day: 1 Plan: routine care Time Spent With Patient Time: Total time spent is greater than 50% in coordination of care (as documented) at patient's floor/unit and/or counseling patient: Review of Systems Review of Systems: All systems reviewed & are unremarkable except as noted in HPI and below Exam Const: General: cooperative, healthy appearing and comfortable Resp: Effort & Inspection: normal respiratory effort Cardio: Rate: regular rate GI: Inspection: normal to inspection Skin: General skin exam: normal color Neuro: General: patient oriented x3 Extrem: Right lower extremity: normal to inspection Left lower extremity: normal to inspection Psych: Appearance: grossly normal
[2023-08-14] MEDS: MULTIVIT/MIN/PREN/FOL AC/IRON TABLET 1 TAB PO (10:22)
[2023-08-14] MEDS: DOCUSATE SODIUM 100 MG CAPSULE PO ×2 (10:22→16:29)
[2023-08-14] MEDS: IBUPROFEN 600 MG TABLET PO ×2 (10:23→16:29)
[2023-08-14] MEDS: LIDOCAINE 5% PATCH 1 PATCH TRANSDERM (10:24)
[2023-08-14] MEDS: SIMETHICONE 80 MG TAB.CHEW PO ×3 (10:24→16:30)
--- NOTE | 2023-08-14 13:36 | WPDANLDPN2 ---
Anes-Prog Note L&D Date/Time: 08/14/23 13:36 Comfortable throughout: section Neuraxial method: spinal Epidural/Spinal procedure site: clean & non-tender Neuro status: Neuro function grossly intact. Cardiovascular status: normal Respiratory status: normal Airway patency: baseline Mental status: baseline Post-Op hydration status: normal Vital Signs: Last Vital Signs Temp 99 F 08/14/23 07:55 Pulse 92 08/14/23 07:55 Resp 18 08/14/23 07:55 BP 145/82 H 08/14/23 07:55 Pulse Ox 99 08/14/23 07:55 O2 Del Method Room Air 08/13/23 20:20 Pain score (VAS): 0/10 I/O: Intake & Output 08/13/23 08/14/23 08/14/23 23:59 07:59 15:59 Intake Total 1550 240 Output Total 1450 300 Balance 100 -300 240 Post-procedural complaints: none Patient feedback: Patient satisfied with anesthetic care.
--- NOTE | 2023-08-14 13:37 | WPDANLDNPN2 ---
Anes-Prog Note L&D-Neuraxial Date/Time: 08/14/23 13:37 Neuraxial medications: intrathecal PF morphine Opiod-related complaints: none Patient feedback: Patient satisfied with post-operative pain management.
[2023-08-14 20:25] VITALS: BP 124/73; PULSE 100; RESP 20; TEMP 36.2
[2023-08-15] MEDS: IBUPROFEN 600 MG TABLET PO ×2 (00:13→07:51)
[2023-08-15] MEDS: HYDROcodone/acetaminophen (*CRX) 5-325 MG TABLET 1 TAB PO ×3 (00:15→07:51)
[2023-08-15] MEDS: SIMETHICONE 80 MG TAB.CHEW PO ×2 (04:34→07:51)
[2023-08-15] MEDS: MULTIVIT/MIN/PREN/FOL AC/IRON TABLET 1 TAB PO (07:51)
[2023-08-15] MEDS: DOCUSATE SODIUM 100 MG CAPSULE PO (07:51)
[2023-08-15 08:30] VITALS: BP 119/64; PULSE 88; RESP 16; TEMP 36.8; O2SAT 99
--- NOTE | 2023-08-15 09:07 | PM.OBPNVD ---
OB - PN: Subj Subjective Date/time seen: 08/15/23 09:07 Interval history: PP day 1 primary csection for breech baby doing well mobile,flatus present Patient comments: no complaints, pain well controlled, incisional pain, tolerating diet and flatus present OB - PN: Obj Data Labs 08/14/23 04:24 OB - PN A/P Plan day: 2 Plan: routine care Comments: POD#2 LTCS - no problems, Time Spent With Patient Time: Total time spent is greater than 50% in coordination of care (as documented) at patient's floor/unit and/or counseling patient: Exam Const: General: comfortable, no acute distress and alert Resp: Effort & Inspection: normal respiratory effort Auscultation: no crackles, no rales and no rhonchi Cardio: Rate: regular rate Heart sounds: no click, no murmurs and no rubs GI: Inspection: non-distended Auscultation: normal bowel sounds Other: Incision - CDI Extrem: General: normal to inspection, no pedal edema and no calf tenderness
--- NOTE | 2023-08-15 10:29 | PC.NURSE ---
Patient viewed the discharge video Mother & Baby Care, The First Two Weeks . Patient was given the opportunity and encouraged to ask questions. Patient verbalized understanding of information shared and has been given the mother/baby guide for home reference.
--- NOTE | 2023-09-12 21:13 | PM.OBDSVD ---
DS: Admitting Diagnosis Discharge Date 08/15/23 Admitting Diagnosis term DS: Discharge Diagnosis Discharge Diagnosis (1) delivery delivered: Code(s): O82 - Encounter for delivery without indication Status: Acute OB - DS: Summary OB Procedures : None OB Procedures Intrapartum: OB Procedures: : None Peripartum Data Procedures: Procedures Operation Date: 08/13/23 09:00 Actual Procedure Side Surgeon p Primary Section Akanksha Navarrete MD Time Spent with Patient Time attestation: Total time spent providing and/or coordinating discharge services: Discharge Plan Discharge Consulting providers: Pippa Dumont; Trace Diamond; Elmer Allison Discharging Clinician: Akanksha Navarrete Patient Disposition: Home, Self-Care Activity: pelvic rest Diet: regular Discharge Instructions: Education: Mom and Baby Guide Given to: Mother Follow-Up: Call your delivering provider's office for an appointment to be seen in: 1 Week Mom and baby should come to the [facility] for the follow-up appointment. Appointment Date/Time: August 16, 2023 at 1:30 pm What to expect at your follow-up visit: Physical Assessment Call [phone] if you are unable to keep your appointment time. BREAST CARE: * Wear a snug supportive bra. * For engorgement discomfort: Bottle Feeding: * May apply ice packs ABDOMINAL INCISION: (if applicable) * Allow incision to air dry * Do NOT use lotions for powders on your incision * When showering, allow soap and water to run over the incision, but do not wash incision EPISIOTOMY/PERINEAL CARE: * Until bleeding stops, use your martir bottle after urinating * Change your pad frequently throughout the day * No tub baths until seen by your physician - You may shower ACTIVITY: * Rest as much as possible. * Do not exercise or lift anything heavier than your baby (such as laundry or other children.) * Avoid stairs or driving as much as possible. * Do not put anything into the vagina. No douching, tampons, or sexual activity until seen by physician. NOTIFY PHYSICIAN IF YOU HAVE ANY QUESTIONS OR IF ANY OF THE FOLLOWING SYMPTOMS OCCUR: * If your incision becomes red, swollen, or more painful than what you have experienced in the hospital. * If your vaginal bleeding becomes foul smelling. * If your vaginal bleeding becomes more heavy than a period or if your bleeding changes from pink to bright red. However, you may pass an occasional walnut-sized clot once or twice for the first week . * If you experience a sharp, shooting pain in you calves. * If you discover a hard, reddened area on your breast or if you experience flu-like symptoms. DIET: * Eat regular, well-balanced meals. * Drink plenty of fluids daily. If , drink to thirst. Stand Alone Forms: General Discharge Information Follow-up/Referrals: Akanksha Navarrete MD [Physician] - Discharge Medications: New oxycodone-acetaminophen 5-325 mg tablet 1 tablet PO Q4H PRN (Reason: pain) Qty: 25 0RF Continued prenat.vits,cholo,bbk-wypr-meyle Tablet 1 tablet PO DAILY Date of admission: 08/13/23 05:33 Primary Care Provider: Pippa Dumont Admitting Provider: Akanksha Navarrete Attending physician on admission: Akanksha Navarrete Condition: Stable
== END 2023-08-15 11:20 | disposition home or self-care (01) | DRG 788 ==
LOC: ANHLDR 05:37 → ANHOB2 12:21
PROVIDERS: Admitting Provider Obstetrics & Gynecology; PCP Advanced Practice Midwife; Visit Provider Obstetrics & Gynecology
PROC: 10D00Z1 Extraction of Products of Conception, Low, Open Approach (ICD-10-PCS; CPT 59514; principal; 2023-08-13 07:30)
DX: O32.1XX0 Maternal care for breech presentation, not applicable or unspecified (principal); Z37.0 Single live birth; Z3A.39 39 weeks gestation of pregnancy
CPT/HCPCS: 36415; 85014; 85018; 85025; 86592; 86850; 86880; 86900; 86901; 86902; A9270; J0690; J1885; J2270; J2274; J2371; J2405; J2590; J7120